=== PATIENT | male | born 1980 | race Two or more races ===

== ENCOUNTER 2019-05-17 23:39 | Emergency (ER) | payer MEDICAID, SELFPAY ==
[~2019-05-17] VITALS: Ht 167.6 cm; Wt 71.0 kg
[2019-05-17 23:43] VITALS: BP 124/95
== END 2019-05-18 01:02 | disposition home or self-care (01) ==
LOC: ED 05-18 00:03
DX: J06.9 Acute upper respiratory infection, unspecified (principal); R06.00 Dyspnea, unspecified
CPT/HCPCS: 71045; 93005; 99284